=== PATIENT | male | born 1965 | race African-American/Black ===

== ENCOUNTER 2023-01-23 17:54 | Emergency (ER) | payer MEDICARE, SELFPAY ==
[~2023-01-23 17:54] MED LIST: Iopamidol 300 61% 100 ML VIAL FS ONE
[2023-01-23 18:40] LABS: Hemoglobin 9.1 g/dL (13.5-17.5); Mean Corpuscular HGB CONC 36.8 g/dL (32.0-36.0); Mean Corpuscular Hemoglobin 31.2 pg (27.0-33.0); Mean Corpuscular Volume 84.6 fl (81.2-95.1); Mean Platelet Volume 11.3 fl (7.4-10.4); Platelet Count 289 10x3/uL (150-450); RBC Distribution Width 13.3 % (11.5-14.5); Red Blood Cell (RBC) Count 2.92 10x6/uL (4.32-5.72); White Blood Cell (WBC) Count 8.1 10x3/uL (3.5-10.5)
[2023-01-23 18:55] LABS: ALT (SGPT) 84 U/L (8-55); AST (SGOT) 57 U/L (5-34); Albumin 3.4 g/dL (3.5-5.0); Alkaline Phosphatase 108 U/L (40-110); Anion Gap 19 mmol/L (10-20); BUN (Urea Nitrogen) 44 mg/dL (8.4-25.7); Bilirubin, Total 1.5 mg/dL (0.2-1.2); CK (CPK) 79 U/L (30-200); Calc. Creatinine Clearance 0 mL/min (70-130); Calcium 9.3 mg/dL (7.8-10.44); Carbon Dioxide 19 mmol/L (22-29); Chloride 97 mmol/L (98-107); Estimated GFR 77; Globulin 3.3 g/dL (2.4-3.5); Glucose 264 mg/dL (70-105); Magnesium 1.9 mg/dL (1.6-2.6); Potassium 3.7 mmol/L (3.5-5.1); Protein, Total 6.7 g/dL (6.0-8.3); Sodium 131 mmol/L (136-145)
[2023-01-23 19:26] LABS: Band 5 % (5-11); Lymphocytes 13 % (21-51); Monocytes 4 % (0-10); Myelocyte 6 % (0-0); Reactive Lymphocytes 1 % (0-10)
[2023-01-23 19:29] LABS: MDiff Complete? YES; RBC Morph Comment Within Normal Limits
[2023-01-23 19:30] LABS: Neutrophil 71 % (42-75)
[2023-01-23 19:31] LABS: Dohle Bodies SLIGHT; Platelet Adequacy Comment Appears Adequate
== END 2023-01-23 22:26 | disposition short-term general hospital (02) ==
LOC: CSHERS 17:54
DX: S32.401A Unspecified fracture of right acetabulum, initial encounter for closed fracture (principal); K56.7 Ileus, unspecified; E78.5 Hyperlipidemia, unspecified; E11.9 Type 2 diabetes mellitus without complications; F17.210 Nicotine dependence, cigarettes, uncomplicated; V89.2XXA Person injured in unspecified motor-vehicle accident, traffic, initial encounter
CPT/HCPCS: 36415; 70450; 74177; 80053; 82140; 82550; 83735; 84484; 85025; 93005